=== PATIENT | female | born 1955 | race Caucasian/White ===

== ENCOUNTER 2018-05-03 16:52 | Observation (INO) ==
[2018-05-03] MEDS ORDERED: ASPIRIN PO ONE (17:12)
--- NOTE | 2018-05-03 17:12 | ED EKG INTERP ---
This chart was entered by Aline Grayson Scribe, acting as scribe for Erlin Contreras MD. EKG Interpretation - EKG Time of EKG reading by physician:: 17:05 EKG Read and Signed by:: Erlin Contreras EKG Interpretation (*Must complete 3 of following elements*): Normal Rate: 65 Rhythm: NSR Bock: normal QRS: normal NC Interval: normal ST Wave: normal Attestation - Physician/ TYLER Attestation Patient care was provided by Advanced Practice Provider:: No The physician spent face to face time with patient:: Yes Advanced Practice Provider documentation review:: Supervising physician onsite and consulted in the evaluation and care of this patient. The physician did have a face to face encounter with the patient. This chart was documented by the indicated scribe, (Aline Grayson Scribe) and accurately reflects the services I performed and decisions made by me, Erlin Contreras MD, as attested by the provider's signature.
--- NOTE | 2018-05-03 17:26 | EKG Report ---
Test Performed on : 05/03/2018 5:05:54 PM Test Reason : KSH Blood Pressure : / mmHG Vent. Rate : 065 BPM Atrial Rate : 065 BPM P-R Int : 148 ms QRS Dur : 072 ms QT Int : 430 ms P-R-T Axes : 014 045 052 degrees QTc Int : 447 ms Normal sinus rhythm. Normal ECG When compared with ECG of 03-FEB-2017 17:57, No significant change was found Unconfirmed Result
[2018-05-03 17:29] LABS: BASO# 0.03 X1000 (0.0-0.2); BASO% 0.3 % (0.0-0.8); HEMATOCRIT 42.7 % (37.0-47.0); HEMOGLOBIN 14.9 g/dL (12.0-16.0); IMM GRAN# 0.01 X1000 (0.0-0.04); IMM GRAN% 0.1 % (0.0-0.5); LYMPH# 3.81 X1000 (1.2-3.4); LYMPH% 38.9 % (20.5-51.1); MCH 30.5 PG (27-31); MCHC 34.9 g/dL (33-37); MCV 87.5 FL (81-99); MONO% 5.1 % (1.7-9.3); MPV 12.2 FL (7.4-10.4); NEUT# 5.34 X1000 (1.4-6.5); NEUT% 54.6 % (42.2-75.2); PLT 231 X1000 (130-400); RBC 4.88 XMIL (4.2-5.4); RDW 13.1 % (11.5-14.5); WBC 9.79 X1000 (4.8-10.8)
[2018-05-03 17:43] LABS: INR 0.91; PROTIME 12.7 Seconds (11.0-16.0)
[2018-05-03 17:44] LABS: PTT 31.6 Seconds (22.3-41.8)
[2018-05-03 17:48] LABS: AGAP 16; ALBUMIN 4.2 g/dL (3.5-5.0); ALKALINE PHOSPHATASE 98 U/L (32-104); BUN 22 mg/dL (8-22); CALCIUM 9.4 mg/dL (8.8-10.2); CHLORIDE 105 mmol/L (98-107); CK PROFILE 62 U/L (24-173); COSMO 286; CREATININE 0.7 mg/dL (0.5-0.9); ESTIMATED GFR > 60; GLUCOSE 90 mg/dL (70-104); GOT 17 U/L (10-30); GPT 13 U/L (10-36); POTASSIUM 4.1 mmol/L (3.5-5.1); SODIUM 142 mmol/L (136-145); TCO2 21 mmol/L (25-35); TOTAL PROTEIN 6.4 g/dL (6.3-8.3)
--- NOTE | 2018-05-03 18:25 | Diag Imaging Result Doc PS360 ---
CT HEAD W/O CONTRAST - 05/03/2018 INDICATION: possible cva COMPARISON: None FINDINGS: The ventricles and sulci are normal in size and contour. No intracranial mass or hemorrhage. The skull is intact. The sinuses mastoids and middle ears are clear. IMPRESSION: Negative exam. This exam was performed using automated exposure control, adjustment of mA or kV according to patient size, and/or use of iterative reconstruction technique Electronically signed by Zack Vasques 05/03/2018 6:22 PM
--- NOTE | 2018-05-03 18:52 | PROVIDER DOCUMENTATION ---
This chart was entered by Aline Grayson Scribe, acting as scribe for Erlin Contreras MD. HPI-Chest Pain - General Chief Complaint: Chest Pain Stated Complaint: CHEST PAIN/JEHOVAH'S WITNESS PAIN Time Seen by Provider: 05/03/18 17:11 Source: patient Allergies/Adverse Reactions: Patient Allergies Allergy/AdvReac Type Severity Reaction Status Date / Time Penicillins Allergy HIVES Verified 05/03/18 17:04 Home Medications: Home Medication List Medication Instructions Recorded Confirmed Last Taken Type Hydrocodone/Acetaminophen [[place] 1 ea PO Q4-6H PRN PRN #20 tab 02/03/17 Unknown Rx 5-325 Tablet] Ondansetron [Zofran Odt] 8 mg PO Q8H PRN #20 tab.rapdis 02/03/17 Unknown Rx - History of Present Illness-CP Nature of Presenting Problem: 62 yof presents to ed w/cc chest pain, tingling on left side of body (legs, head /faith area and near mouth), symptoms of tingling started today but chest pain has been on and of for months. pain radiates into abd and is causing nausea. 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 pt is coming to [facility] on to get mri of heart. Review of Systems - Adult - REVIEW OF SYSTEMS - ADULT Constitutional: denies: chills, fever, fatique Eyes: reports: no symptoms reported Ears, Nose, Mouth & Throat: reports: no symptoms reported Cardiovascular: reports: see HPI, chest pain, irregular heart rate (arrythmia). denies: edema, palpitations, syncope Respiratory: reports: no symptoms reported Gastrointestinal: reports: see HPI, abdominal pain, nausea. denies: constipation, difficulty swallowing, frequent heartburn Genitourinary: reports: no symptoms reported Musculoskeletal: reports: no symptoms reported Integumentary: reports: no symptoms reported Neurological: reports: see HPI (pain in left faith), numbness (in left side of body, head/faith left side, left leg, neck.). denies: ataxia, loss of balance Psychiatric: reports: no symptoms reported Endocrine: reports: no symptoms reported Hematologic/Lymphatic: reports: no symptoms reported Allergic/Immunologic: reports: no symptoms reported All Other Systems: Reviewed and Negative Past History - Adult - PAST MEDICAL HISTORY-ADULT Review of Records: reports: Old Records Reviewed, Nursing Assessment Review, Medications Reviewed, Social history reviewed & non-contributory. Major Childhood Illnesses: reports: denies history Cardiovascular: reports: angina, arrhythmia, CAD Respiratory: reports: denies history Gastrointestinal: reports: denies history Obstetrical/Gynecological: reports: denies history Genitourinary: reports: denies history Musculoskeletal: reports: denies history Neurological: reports: denies history Endocrine/Immune: reports: denies history Other Conditions: reports: cataract/glaucoma, other (gallstones) - PRIOR SURGERIES/PROCEDURES Surgical/Procedure History: reports: hysterectomy, orthopedic (extremity) (knee , shoulder), other (cataract removal) - IMMUNIZATION STATUS Childhood Immunizations: See Nurse Assessment Flu Vaccine: See Nurse Assessment - FAMILY HISTORY Family History: reviewed, not pertinent - SOCIAL HISTORY Smoking: cigarettes, less than 1 pack/day Provider spent 3-5 mins advising pt. on dangers of tobacco.: Discussed manners to quit use, and f/u contacts for add'l counseling. Substance Use: none/never Physical Exam-General - PHYSICAL EXAM-ADULT Initial Vital Signs Reviewed: Yes - CONSTITUTIONAL General Appearance: appears well, alert, no apparent distress - EYES Eyes: PERRL/EOMI - HEAD, EARS, NOSE, MOUTH & THROAT HENMT: normocephalic/atraumatic, moist mucous membranes, normal ENT inspection - NECK Neck: non-tender, full range of motion, supple - RESPIRATORY Respiratory: chest non-tender, lungs clear, normal breath sounds - CARDIOVASCULAR Cardiovascular: normal peripheral pulses, regular rate, rhythm, no edema, no gallop, no JVD, no murmur - GASTROINTESTINAL (ABDOMEN) Abdominal Exam: normal bowel sounds, non tender, soft - LYMPHATIC Lymphatic: no adenopathy - MUSCULOSKELETAL Back Exam: normal inspection, no CVA tenderness, no vertebral tenderness Extremity: normal range of motion, non-tender, normal gait, normal inspection - SKIN Integumentary: normal color, normal turgor, warm/dry - NEUROLOGIC 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, grossly normal, no motor/sensory deficits - PSYCHIATRIC Psych/Mental Status: normal mood/affect, normal thought content, normal thought process, oriented x 3 - HEART Score HEART Score: History: Slightly Suspicious HEART Score: ECG: Non-Specific Repolarization Disturbance/LBBB/PM HEART Score: Age: 45-65 Years HEART Score: Risk Factors for Atherosclerotic Disease: 1 or 2 Risk Factors HEART Score: Troponin: < or = Normal Limit Total HEART Score:: 3 Progress - PLAN OF CARE/RESULTS Progress/Plan/Lab Results: Vital Signs - 8 hr 05/03/18 16:58 Temperature 98.3 F Pulse Rate 76 Respiratory Rate 18 Blood Pressure 132/76 O2 Sat by Pulse Oximetry 99 Laboratory Results - last 24 hr 05/03/18 05/03/18 05/03/18 15:17 15:17 15:17 WBC 9.79 RBC 4.88 Hgb 14.9 Hct 42.7 MCV 87.5 MCH 30.5 MCHC 34.9 RDW Std Deviation 13.1 Plt Count 231 MPV 12.2 H Immature Gran % (Auto) 0.1 Neut % (Auto) 54.6 Lymph % (Auto) 38.9 [place] % (Auto) 5.1 Eos % (Auto) 1.0 Baso % (Auto) 0.3 Immature Gran # (Auto) 0.01 Neut # (Auto) 5.34 Lymph # (Auto) 3.81 H [place] # (Auto) 0.50 Eos # (Auto) 0.10 Baso # (Auto) 0.03 PT INR PTT (Actin FS) Sodium 142 Potassium 4.1 Chloride 105 Carbon Dioxide 21 L Anion Gap 16 BUN 22 Creatinine 0.7 Estimated GFR/1.73 m2 > 60 BUN/Creatinine Ratio 31 Glucose 90 Calculated Osmolality 286 Calcium 9.4 Total Bilirubin 0.20 AST 17 ALT 13 Alkaline Phosphatase 98 Creatine Kinase 62 Troponin T Mda-B-Ivdbjabmiaj Pept 20 Total Protein 6.4 Albumin 4.2 Globulin 2.0 Albumin/Globulin Ratio 2.0 05/03/18 05/03/18 15:17 15:17 WBC RBC Hgb Hct MCV MCH MCHC RDW Std Deviation Plt Count MPV Immature Gran % (Auto) Neut % (Auto) Lymph % (Auto) [place]ill % (Auto) Eos % (Auto) Baso % (Auto) Immature Gran # (Auto) Neut # (Auto) Lymph # (Auto) Traill # (Auto) Eos # (Auto) Baso # (Auto) PT 12.7 INR 0.91 PTT (Actin FS) 31.6 Sodium Potassium Chloride Carbon Dioxide Anion Gap BUN Creatinine Estimated GFR/1.73 m2 BUN/Creatinine Ratio Glucose Calculated Osmolality Calcium Total Bilirubin AST ALT Alkaline Phosphatase Creatine Kinase Troponin T < 0.010 Pzv-I-Sepaergdtkq Pept Total Protein Albumin Globulin Albumin/Globulin Ratio Orders Category Date Time Status Cardiac Monitoring DIRECTED Care 05/03/18 17:12 Active Oxygen Therapy- ED Nursing DIRECTED Care 05/03/18 17:12 Active Saline Loc NOW Care 05/03/18 17:12 Active CHEST-2 VIEWS [RAD] Stat Exams 05/03/18 17:[address] HEAD W/O CONTRAST [CT] Stat Exams 05/03/18 17:33 Completed CBC WITH ELECTRONIC DIFF [HEME] Stat Lab 05/03/18 15:17 Completed CK PROFILE [SP CHEM] Stat Lab 05/03/18 15:17 Completed COMPREHENSIVE METABOLIC PANEL [CHEM] Stat Lab 05/03/18 15:17 Completed PRO B-NATRIURETIC PEPTIDE Stat Lab 05/03/18 15:17 Completed PROTIME WITH INR [COAG] Stat Lab 05/03/18 15:17 Completed PTT [COAG] Stat Lab 05/03/18 15:17 Completed TROPONIN T Stat Lab 05/03/18 15:17 Completed Aspirin Med 05/03/18 17:12 Discontinued 325 mg PO NOW ONE CP/SOB/Palp >45 yrs of Age Stat Oth 05/03/18 17:12 Ordered EKG [EKG] Stat Ther 05/03/18 17:12 Draft Result Diagrams: 05/03/18 15:17 05/03/18 15:17 - CONSULTS/PCP/HOSPITALIST Notification #1 *Consult/PCP/Hospitalist*: Dr Luo Time Discussed: 18:52 Consult Disposition: Will see in ED, Admit Departure - Departure Date of Disposition Decision: 05/03/18 Time of Disposition Decision: 18:52 DIAGNOSIS: Chest pain, TIA (transient ischemic attack) Disposition: ADMITTED INPATIENT 09 Certified Medical Emergency: Emergent Condition: Fair Referrals and Follow-Ups: Kendrick Arriola MD [Primary Care Provider] - - Critical Care Note This patient required my direct & personal management of CC.: No Attestation - Physician/ TYLER Attestation Patient care was provided by Advanced Practice Provider:: No The physician spent face to face time with patient:: Yes Advanced Practice Provider documentation review:: Supervising physician onsite and consulted in the evaluation and care of this patient. The physician did have a face to face encounter with the patient. This chart was documented by the indicated scribe, (Aline Grayson, Nita) and accurately reflects the services I performed and decisions made by me, Erlin Contreras MD, as attested by the provider's signature.
--- NOTE | 2018-05-03 19:21 | Diag Imaging Result Doc PS360 ---
CHEST-2 VIEWS - 05/03/2018 INDICATION: CP COMPARISON: None FINDINGS: The lungs are normally expanded and clear. Heart size and mediastinal contours are normal. No pneumothorax or pleural effusion. IMPRESSION: Negative exam. Electronically signed by Zack Vasques 05/03/2018 7:19 PM
[2018-05-03] MEDS ORDERED: TYLENOL PO PRN (22:13)
[2018-05-03] MEDS: ZOFRAN IV PRN (22:45)
[2018-05-03 23:27] LABS: AGAP 16; ALBUMIN 3.9 g/dL (3.5-5.0); ALKALINE PHOSPHATASE 83 U/L (32-104); BUN 22 mg/dL (8-22); CHLORIDE 105 mmol/L (98-107); COSMO 284; CREATININE 0.6 mg/dL (0.5-0.9); ESTIMATED GFR > 60; GLUCOSE 88 mg/dL (70-104); GOT 14 U/L (10-30); GPT 12 U/L (10-36); SODIUM 141 mmol/L (136-145); TCO2 20 mmol/L (25-35)
--- NOTE | 2018-05-04 00:44 | HISTORY AND PHYSICAL ---
CHIEF COMPLAINT: Headache and then chest pain. HISTORY OF PRESENT ILLNESS: This is a 62-year-old female who comes in from home with a headache. Her main symptoms were headache. She has tingling and weakness on the left side of her face, arm, and left leg. I do not think she has had that before. Her chest pain is intermittent, off-and-on for months. She also is very nauseous. She saw Dr. Nails on Tuesday, who got an EKG, blood pressure was 190, and she was coming back it is quoted here "for an MRI of the heart." I do not think that is accurate. I am assuming she is trying to get a coronary CT angiogram of the heart, but in any case, her symptoms are atypical. She has left-sided weakness, paresthesias, but then also kind of an intermittent lancinating pain. Workup was really unremarkable. She does have a birthmark that looks like some sort of vascular birthmark that she has had surgery on that is periorbital, but then also along her buccal area on the left side. She was admitted for TIA but then, of course, there was concern over chest pain, but that has been going on off and on and, again, I think Dr. Nails has been planning a coronary CT angiogram for that purpose. Not an MRI as far as I can tell. The only med she takes are [place] and Zofran. She is not hypertensive, at least no medicines for that. No dyslipidemia. No diabetes. No CAD. The patient placed in observation for possible TIA and chest pain. PAST MEDICAL HISTORY: No chest pain, no CAD. PAST SURGICAL HISTORY: She has had a hysterectomy, She has had knee and shoulder repairs, and then she recently had cataract removal. FAMILY HISTORY: She has had brothers, father, and mother with CAD. Father, I think, had heart issues in her 50s. Mother, I think, in her late 60s or 70s. Brother also may be in the 60s. SOCIAL HISTORY: She smokes about half a pack a day. No alcohol. These symptoms started at work, probably right before lunchtime. REVIEW OF SYSTEMS: Otherwise negative times a 10 point review of systems. PHYSICAL EXAMINATION: VITAL SIGNS: Blood pressure 173/107, heart rate 76, respiratory rate 19, temperature 98.3 degrees. GENERAL: A well-developed female in no acute distress. HEAD: Normocephalic, atraumatic. She did have the lesion on her left face previously. EYES: Pupils are equal, round, reactive to light. Extraocular movements were intact. EARS, NOSE, AND THROAT: She had moist mucous membranes. CARDIOVASCULAR: Regular rate and rhythm. PULMONARY: Bilateral breath sounds. Clear to auscultation. GASTROINTESTINAL: Soft, nontender, nondistended. Bowel sounds are positive. NEUROLOGICAL: I would say was focal in the sense of weakness, but cranial nerves 2-12 were intact. Her musculoskeletal, she definitely had a depreciative of lack in strength on the left side, arm, leg. She had paresthesias on the left side of her face. SKIN: Just vascular ectasia on the left side of her face. LABORATORY DATA: Really unremarkable. Labs okay. IMAGING: Head CT was unremarkable. Chest x-ray negative. EKG was negative. There was some concern over possible left bundle branch block, but her QRS is 72 milliseconds. I am really not sure, there is no evidence of that per se. ASSESSMENT: 1. Chest pain. Place her in Observation. Get cardiology opinion about further imaging. Do serial enzymes and monitor. 2. Neurologic. Unclear if this is transient ischemic attack versus other process. Aortic dissection is always a concern when there is neurological symptoms of chest pain. I think that is highly unlikely because she is so stable, but we will analyze that. She does not have a widened mediastinum on her chest x-ray. Her blood pressures are stable, but we will analyze that. 3. Transient ischemic attack. Stroke is a possibility. We will pursue MRI in the morning as her other tests are negative. We will pursue other workup, B12, sedimentation rate, folate, TSH, see if there is any other potential markers here for other pathology that may explain her paresthesias, but she does have some weakness. We will attempt to get a neurology consult if available tomorrow for further evaluation. We will continue to monitor closely. This is a patient Dr. Arriola. We will continue to follow. cc: MD Kendrick Cedillo MD
[2018-05-04 02:28] LABS: BASO# 0.03 X1000 (0.0-0.2); BASO% 0.4 % (0.0-0.8); EOS# 0.09 X1000 (0.0-0.7); EOS% 1.1 % (0.0-10.0); HEMATOCRIT 38.4 % (37.0-47.0); HEMOGLOBIN 13.4 g/dL (12.0-16.0); IMM GRAN# 0.03 X1000 (0.0-0.04); IMM GRAN% 0.4 % (0.0-0.5); LYMPH# 3.49 X1000 (1.2-3.4); LYMPH% 40.8 % (20.5-51.1); MCH 30.6 PG (27-31); MCHC 34.9 g/dL (33-37); MCV 87.7 FL (81-99); MONO# 0.52 X1000 (0.11-0.59); MONO% 6.1 % (1.7-9.3); MPV 12.4 FL (7.4-10.4); NEUT# 4.39 X1000 (1.4-6.5); NEUT% 51.2 % (42.2-75.2); PLT 209 X1000 (130-400); RBC 4.38 XMIL (4.2-5.4); RDW 12.9 % (11.5-14.5); WBC 8.55 X1000 (4.8-10.8)
[2018-05-04] MEDS: ZOFRAN IV PRN (02:38)
[2018-05-04] MEDS: MORPHINE IV PRN ×2 (02:38→17:20)
[2018-05-04 02:48] LABS: TSH 1.23 uIUmL (0.27-4.20)
[2018-05-04 06:04] LABS: SED RATE 15 mm/hr (0-20)
--- NOTE | 2018-05-04 08:27 | Diag Imaging Result Doc PS360 ---
CT THORAX W/CONTRAST - 05/04/2018 INDICATION: chest pain COMPARISON: Chest x-ray 05/03/2018 FINDINGS: There is advanced calcific coronary artery disease primarily of the left anterior descending coronary artery. Heart size is normal with no pericardial effusion. No adenopathy. There are cholecystectomy clips. Upper abdominal images are normal. There is some platelike atelectasis in the left lower lobe and the right upper lobe. No infiltrates. There are moderate degenerative changes of the spine. No acute or suspicious bony lesion. IMPRESSION: No acute disease. Coronary artery disease. This exam was performed using automated exposure control, adjustment of mA or kV according to patient size, and/or use of iterative reconstruction technique Electronically signed by Zack Vasques 05/04/2018 8:25 AM
[2018-05-04] MEDS ORDERED: FLU VACCINE IM ONE (09:00)
[2018-05-04] MEDS ORDERED: PNEUMOVAX 23 IM ONE (09:00)
--- NOTE | 2018-05-04 09:24 | Diag Imaging Result Doc PS360 ---
MRI BRAIN W/WO CONTRAST - 05/04/2018 INDICATION: r/o cva COMPARISON: None FINDINGS: There is no area of restricted diffusion. The ventricles and sulci are normal in size and contour. No intracranial mass or hemorrhage. No area of abnormal contrast enhancement. Midline structures including the optic chiasm and pituitary are normal. IMPRESSION: Negative exam. Electronically signed by Zack Vasques 05/04/2018 9:22 AM
[2018-05-04] MEDS: ASPIRIN EC PO SCH (10:21)
--- NOTE | 2018-05-04 15:19 | CARDIOLOGY CONSULTATION ---
DATE: 05/04/2018 HISTORY OF PRESENT ILLNESS: This is a 62-year-old lady who presents with having headache and intermittent chest discomfort. She also shares that when she came to the emergency room she had some tingling and difficulty in speech. As far as chest pain is concerned, she describes it as sharp in character. She was recently seen in our office and she was noted to have an elevated blood pressure of 190/100. Given that adjustment to medications were made, she was also going to be set up for a CT angiogram of her coronary arteries to rule out obstructive coronary artery disease. At the time of my examination the patient was pain free. She does not complain of having any chest pains at the present time. She has had normal blood pressures, had been on medications; however, her blood pressure was elevated and she was sent a prescription of Norvasc. There is no history of palpitations. There is no dizziness or syncope. REVIEW OF SYSTEM: A 14-point review of systems was done.GI system: There is no history of nausea, vomiting, or diarrhea. Central nervous system: As above. Genitourinary: There is no dysuria or hematuria. Respiratory System: There is no history of cough, expectoration, hemoptysis. There is no history of fevers or chills. PAST MEDICAL HISTORY: 1. Hypertension, uncontrolled. 2. Hyperlipidemia. 3. History of left heart catheterization at [facility] in 2010. Per patient, she was noted to have some minimal blockages but nothing significant at that time. 4. Obesity. 5. Smoker. 6. Family history of coronary artery disease. 7. There is no history of alcohol abuse. PHYSICAL EXAMINATION: Vital Signs: Blood pressure when she was seen in our office was 190/100. Currently blood pressure is elevated. When she came in here it was 170/100. Cardiovascular System: Normal jugular venous pressure. There no thyromegaly. No carotid bruit. First and second heart sounds were heard. There is no S3, S4, or gallop. Respiratory System: Normal air entry. There are no crepitations or rhonchi. Abdomen: Soft, obese, nontender. There was no guarding or rigidity. Bowel sounds were heard. Central nervous system: Alert and oriented. Was moving all 4 extremities. Detailed central nervous system examination not performed. Extremities: Examination of extremities revealed no pedal edema. HEENT: Atraumatic, normocephalic. Pupils were equal and reacting to light. ASSESSMENT AND PLAN: Ms. Sandhya Jean-Baptiste is a 62-year-old lady with minimal coronary artery disease, hypertension, hyperlipidemia, comes to the emergency room with having chest pain. She has also noted some difficulty in speech as well. Blood pressures were elevated. RECOMMENDATIONS: 1. From a cardiac standpoint, we will get an echocardiogram to assess cardiac and valvular function. 2. We will get a CT angiogram of her coronary arteries to rule out obstructive coronary artery disease. 3. She did complain of having some difficulty in speech. Otherwise, no obvious neurological symptom. Given this, we will also get a CT scan to make sure there is no significant intracranial pathology. 4. For hypertension, increase her metoprolol to 50 mg twice a day. She is on lisinopril 20. In addition we will add Norvasc to her medical regimen as planned. 5. We will continue with her aspirin. Thanks for the consult. We will follow hospital course. cc: Kashif Sorensen MD
[2018-05-04] MEDS: NORVASC PO SCH (15:58)
--- NOTE | 2018-05-04 16:28 | PROGRESS NOTE ---
DATE: 05/04/2018 SUBJECTIVE: This morning. Ms. Jean-Baptiste referred to be doing a lot better. Still has some residual left-sided weakness, but no more chest discomfort. OBJECTIVE: Vital signs: Blood pressure is 119/48. The patient presented with a blood pressure 173/107, pulse is 65, respirations 18, temperature 97.7. General: Ms. Jean-Baptiste is a 62-year-old, female. She is in bed. Not seemingly distressed. HEENT: Mucosa is pink and moist. Anicteric. Acyanotic. Neck: Supple. Chest: Good air entry bilateral. There were no crepitations, no rhonchi. Cardiovascular: Regular rate and rhythm. No murmurs, no rubs, no gallops. Abdomen: Soft, nontender. Bowel sounds present. Extremities: No pedal edema. 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 There is some power about 4- on the left side and 5/5 on the right side. There is also some sensation deficit in the left side comparing to the right side. LABORATORY DATA: WBC is 8.55, hemoglobin is 13.4, platelet count of 209. Chemistry is also reviewed and unremarkable. The patient's troponins have been repeated 4 times negative. IMAGING STUDIES: Of significance: A chest x-ray on presentation shows normal. A CT scan of the head showed was negative. An MRI has shown no abnormality. A CT of the chest shows no acute, but there is coronary artery disease. ASSESSMENT: 1. Acute onset of left-sided weakness with dysarthria and hypo-anesthesia. All suggestive of possible cerebrovascular accident in the right middle cerebral artery territory. However, the MRI is completely normal. We will get carotid ultrasound to complete the studies. 2. Chest pain with normal enzymes. EKG is also unremarkable for any ST-segment or T-wave abnormality. The patient has been evaluated by Cardiology and there is a plan for a CT angiogram of the coronaries tomorrow. 3. History of coronary artery disease. 4. Severe, uncontrolled hypertension on presentation. Improved. PLAN: So, in general, Ms. Jean-Baptiste seems to be doing fairly okay. She has been seen by Cardiology and there is a plan for a coronary CTA tomorrow. We will also do the carotid studies for completion of the stroke workup. We will get physical therapy to start working with her. Hopefully, in the next 24 hours, will probably be able to discharge her. cc: Brown Kim MD
[2018-05-04] MEDS: LOPRESSOR PO SCH ×2 (18:49→20:06)
[2018-05-04] MEDS: LIPITOR PO SCH (20:08)
--- NOTE | 2018-05-05 03:52 | ECHO REPORT ---
ORDER DATE: 05/04/2018 MEASUREMENTS: Left ventricular end diastolic diameter 3.8. End systolic diameter 2.2. Septal thickness 1.1. Posterior wall thickness 1.0. Aortic root 3.1. Left atrium 3.1. SUMMARY: 1. Fair quality study. 2. Aortic valve is trileaflet, and opens normally on 2-dimensional images. Peak gradient across the aortic valve is less than 10 mmHg. Mitral, tricuspid, and pulmonic valves are without evidence of structural abnormality, with trace mitral regurgitation and trace tricuspid regurgitation. Aortic root is normal in size. 3. Normal left ventricular dimensions demonstrated. Estimated left ventricular ejection fraction appears to be at least 65%. No regional wall motion abnormalities are evident. Doppler suggests grade 1 left ventricular diastolic dysfunction. The left atrium, right atrium, and right ventricle are normal in size, with grossly preserved right ventricular systolic function. 4. No pericardial effusion. 5. Appearance of inferior vena cava suggests normal central venous pressure. cc: MD Jaclyn Hitchcock CRNP
[2018-05-05] MEDS: LOPRESSOR PO SCH ×2 (05:53→17:09)
[2018-05-05] MEDS ORDERED: NITROGLYCERIN LINGUAL SPRAY ONE (08:00)
--- NOTE | 2018-05-05 09:20 | Extremity Venous Study ---
EXAM: Carotid Ultrasound - 05/04/2018 HISTORY: stroke like symptoms TECHNIQUE: Carotid flow studies COMPARISON: None. FINDINGS: There is mild atherosclerotic plaquing at the carotid bulb and proximal internal carotid on the right. Maximum systolic velocity in the right internal carotid is 73 cm/s, and maximum diastolic velocity is 20 cm/s. The right internal to common carotid systolic velocity ratio is 1.08. The flow velocities and ratio are consistent with 0-39% stenosis at the right internal carotid. The right vertebral demonstrates antegrade flow. There is mild atherosclerotic plaquing at the common carotid on the left. There is there is mild atherosclerotic plaquing at the carotid bulb and proximal internal carotid on the left. Maximal systolic velocity in the left internal carotid is 91 cm/s, and maximum diastolic velocity is 20 cm/s. The left internal to common carotid systolic velocity ratio is 0.76. The flow velocities and ratio are consistent with 0-39% stenosis at the left internal carotid. The left vertebral demonstrates antegrade flow. IMPRESSION: Mild atherosclerotic plaquing in bilateral carotid systems. 0-39% stenosis at right internal carotid. 0-39% stenosis at left internal carotid. Electronically signed by Shadi Pérez 05/05/2018 9:17 AM
--- NOTE | 2018-05-05 09:29 | Diag Imaging Result Doc PS360 ---
EXAM: CT ANGIOGRAM HEART W/WO CONT - 05/05/2018 HISTORY: chest pain TECHNIQUE: CT heart with calcium scoring without contrast; CT angiogram heart over read (the CT angiogram itself is interpreted separately by cardiology) COMPARISON: 05/04/2018 CT thorax with contrast FINDINGS: CT heart with calcium scoring: The total calcium score is 412. This is in the extensive plaque burden range of over 400. CT angiogram heart over read: There is stable mild linear scarring at the anterior right upper lobe. There is subsegmental atelectasis at the bilateral lower lobes which appears overall decreased compared to prior. The visualized lungs near the heart otherwise appear clear of acute changes. The visualized mediastinum shows some atheromatous changes in the thoracic aorta. There is no indication of aortic dissection. There is thoracic spondylosis noted. IMPRESSION: CT heart with calcium scoring: The total calcium score is 412. This is in the extensive plaque burden range of over 400. CT angiogram heart over read: Mild linear scarring at right upper lobe. Mild atelectasis at bilateral lower lobes. Atheromatous changes in the thoracic aorta. Electronically signed by Shadi Pérez 05/05/2018 9:26 AM
--- NOTE | 2018-05-05 11:32 | PROGRESS NOTE ---
DATE: 05/05/2018 SUBJECTIVE: Patient denies having any acute complaints this morning. OBJECTIVE: Vital Signs: Temperature 97.3 degrees, pulse 57 per minute, respiratory rate 18 per minute, blood pressure 124/44, and pulse oximetry 98% on room air. General: Patient is alert and oriented x3. She does not appear to be in any acute distress. Cardiovascular: First and second heart sounds are audible without any murmurs or gallops. Respiratory: No respiratory distress noted. Bilateral lung air entry is good without any rales or rhonchi. Gastrointestinal: Abdomen is soft and nontender. Normal bowel sounds are present. DIAGNOSTIC DATA: Labs from yesterday were reviewed that showed negative cardiac enzymes. IMPRESSION: A 62-year-old female who has been admitted with chest pain, and has history of TIA, along with hypertension. She is here for coronary artery disease evaluation. PLAN: The patient has been seen by Cardiology who recommended her to have CT angiogram of the coronary arteries. The test has been done, but we are waiting for the results at this time. She is chest pain free, and seems to be in stable condition. We are going to continue with aspirin 81 mg daily along with her routine medications including atorvastatin 40 mg daily and lisinopril 20 mg daily. She is also getting metoprolol 50 mg twice daily along with amlodipine 5 mg daily. We will wait until the CT angiogram of the coronary results are back. She can probably be discharged home if there is no coronary artery disease documented on CT angiogram. cc: Syeda Javier MD
[2018-05-05] MEDS: NORVASC PO SCH (12:44)
[2018-05-05] MEDS: PRINIVIL PO SCH (12:44)
--- NOTE | 2018-05-05 15:52 | CTA CORONARY ---
PROCEDURE NAME: - CT CORONARY ANGIOGRAPHY, CT LEFT VENTRICULOGRAPHY: Informed consent was obtained from the patient. Intravenous access was established. 90 mL of iodinated contrast was given per standard protocol. Images were acquired at 0.6 mm multislice intervals, presented for review. FINDINGS: 1. Calcium score was 412. Left ventricular ejection fraction 55%. 2. Ascending aorta was normal. There was no dissection noted. Aortic valve leaflets are trileaflet. Pulmonary veins, 2 superior, 2 inferior, were normal. 3. Pulmonary arteries in the proximal presented segment did not reveal any evidence of obstruction. 4. Coronary anatomy: There appeared to be 2 ostia for the left anterior descending artery and the circumflex artery. However, there was eccentric calcification obscuring the ostium of the left anterior descending artery. 5. Just beyond the ostium, there was noncalcified plaque with at least 50% to 60 % stenosis noted in the proximal left anterior descending artery, more close to the ostium. Beyond that, there was poststenotic dilatation. There was calcified and noncalcified plaque extending into the proximal segment of the left anterior descending artery. In that segment there was 30% to 40% stenosis. Further distally, the left anterior descending artery had eccentric calcification coursed around the apex without any other significant stenosis. 6. Diagonal arteries 1 and 2 were small caliber vessels without any significant stenosis. 7. The ostium of the circumflex artery appeared to be obscured because of the eccentric calcification noted. However, there does not appear to be any stenosis. The circumflex arterial system was nondominant. The vessel itself was a large caliber vessel. Distally, it was extremely tortuous and long without any significant stenosis. 8. The right coronary artery was a dominant vessel. The proximal mid distal right coronary artery was normal. There was a moderate-sized PDA which was long, slightly tortuous distally without any significant stenosis. The posterolateral branch of the right coronary artery was a moderate to large size vessel divided distally into 3 small caliber vessels without any significant stenosis. CONCLUSIONS: 1. Calcium score was 412. 2. There appeared to be 2 ostia off the left anterior descending artery and the another 1 for the circumflex artery. However, there was calcium noted obscuring the ostium of the left anterior descending artery. Just beyond that, the left anterior descending artery had noncalcified plaque. The vessel there measured 1.9 mm diffusely narrowed up to 50% to 60% . Beyond that, there was poststenotic dilatation of the left anterior descending artery. The vessel beyond that had eccentric calcified and noncalcified plaque of 30% to 40%. Further distally, there was eccentric calcification. 3. Circumflex arterial system was nondominant and was normal. The right coronary artery was a large dominant vessel and was normal. Left ventricular ejection fraction 55% . RECOMMENDATIONS: Would recommend invasive coronary angiography given the disease noted in the ostium of the left anterior descending artery which had separate ostia. This could be because of ballooning artifact as well. However, there was followed by poststenotic dilatation noted in the proximal LAD. cc: Kashif Sorensen MD MTDD
[2018-05-05] MEDS: ASPIRIN EC PO SCH (17:09)
[2018-05-05] MEDS: LIPITOR PO SCH (20:41)
[2018-05-05] MEDS: MORPHINE IV PRN (20:41)
[2018-05-05] MEDS: ZOFRAN IV PRN (20:41)
[2018-05-06] MEDS: MORPHINE IV PRN ×3 (02:00→18:31)
[2018-05-06] MEDS: LOPRESSOR PO SCH ×2 (06:30→18:31)
[2018-05-06] MEDS: ZOFRAN IV PRN ×3 (06:35→18:38)
[2018-05-06] MEDS: PRINIVIL PO SCH (09:29)
[2018-05-06] MEDS: ASPIRIN EC PO SCH (09:29)
[2018-05-06] MEDS: NORVASC PO SCH (09:29)
--- NOTE | 2018-05-06 12:20 | PROGRESS NOTE ---
DATE: 05/06/2018 SUBJECTIVE: Patient denies having any acute complaints this morning and feels well. OBJECTIVE: Vital Signs: Temperature 97.8 degrees, pulse 55 per minute, respiratory rate 18 per minute, blood pressure 131/57, and pulse ox 97% on room air. General: Patient is alert and oriented x3. She does not appear to be in any acute distress. Cardiovascular System: First and second heart sounds are audible without any murmurs or gallops. Respiratory System: No respiratory distress noted. Bilateral lung air entry is good without any rales or rhonchi. Gastrointestinal: Abdomen is soft and nondistended. Normal bowel sounds are present. DIAGNOSTIC DATA: Serial cardiac enzymes have been negative for any acute myocardial ischemic event. CT angiogram of the coronaries done yesterday showed some calcium noted to be obscuring the ostium of the left anterior descending artery. Left anterior descending artery was noted to have diffuse narrowing up to 50 to 60 percent. There was also poststenotic dilatation of the left anterior descending artery. The vessel beyond that had eccentric calcified and noncalcified plaque of 30 to 40 percent. Circumflex and right coronary arteries were normal. Left ventricular ejection fraction was estimated at 55%. IMPRESSION: 1. Coronary artery disease. 2. History of TIA. 3. Hypertension. PLAN: We will keep her here at the hospital, and keep her on aspirin, atorvastatin, metoprolol and lisinopril. Cardiology has recommended her to be transferred tomorrow to [facility] for left heart catheterization done on Tuesday morning. This has been communicated with the patient, and she has agreed with the treatment plan. cc: Syeda Javier MD
[2018-05-06] MEDS: LIPITOR PO SCH (21:11)
--- NOTE | 2018-05-06 21:29 | CARDIOLOGY PROGRESS NOTE ---
DATE: 05/06/2018 SUBJECTIVE: Ms. Jean-Baptiste has had very brief episodes of chest discomfort, lasting a few seconds. These have occurred at rest. PHYSICAL EXAMINATION: Vital Signs: She is afebrile. Heart rate of 55, blood pressure 131/57. General: She is in no acute distress. Cardiovascular: Regular rate and rhythm. No murmurs. No S3. No lower extremity edema. Chest: Clear bilaterally. No increased work of breathing. Abdomen: Soft, nontender, no recent laboratories have been checked. ASSESSMENT: Ms. Jean-Baptiste is a 62-year-old female, who had a coronary CT that was concerning for possible ostial LAD disease. She is pending transfer over to [facility] for potential intervention to this lesion. cc: Basim Nguyen MD
[2018-05-07] MEDS: LOPRESSOR PO SCH ×2 (05:35→18:40)
[2018-05-07] MEDS: MORPHINE IV PRN ×3 (10:01→20:23)
[2018-05-07] MEDS: ZOFRAN IV PRN ×2 (10:02→20:23)
[2018-05-07] MEDS: ASPIRIN EC PO SCH (10:46)
[2018-05-07] MEDS: PRINIVIL PO SCH ×2 (10:47→10:52)
[2018-05-07] MEDS: NORVASC PO SCH (10:51)
--- NOTE | 2018-05-07 12:38 | PROGRESS NOTE ---
DATE: 05/07/2018 SUBJECTIVE: Patient denies having any acute complaints at this time. She did have a mild episode of brief chest pain early this morning. Currently, she is not having any more chest pain. OBJECTIVE: Vital Signs: Temperature 98 degrees, pulse is 58 per minute, respiratory rate 18 per minute, blood pressure 144/65, pulse oximetry 99% on room air. General: Patient is alert and oriented x3. She does not appear to be in any acute distress. Cardiovascular: First and second heart sounds are audible without any murmurs or gallops. Respiratory System: No respiratory distress noted. Bilateral lung air entry is good without any rales or rhonchi. Gastrointestinal: Abdomen is soft and nondistended. Normal bowel sounds are present. IMPRESSION: 1. Coronary artery disease. 2. Hypertension. 3. Dyslipidemia. 4. History of TIA. PLAN: This is a 62-year-old lady who had a coronary CT angiogram that was concerning for possible ostial LAD disease, because of which she Cardiology has recommended her to be transferred to [facility] for further care. We are going to continue with aspirin, metoprolol and atorvastatin. She will remain here until she is transferred over there for left heart catheterization and further interventional care. cc: Syeda Javier MD
[2018-05-07] MEDS: LIPITOR PO SCH (20:23)
[2018-05-08] MEDS: LOPRESSOR PO SCH (07:07)
[2018-05-08] MEDS: ZOFRAN IV PRN (07:34)
[2018-05-08] MEDS: MORPHINE IV PRN (07:34)
[2018-05-08 07:47] VITALS: BP 113/47
[2018-05-08] MEDS: PRINIVIL PO SCH (09:18)
[2018-05-08] MEDS: NORVASC PO SCH (09:18)
[2018-05-08] MEDS: ASPIRIN EC PO SCH (09:19)
--- NOTE | 2018-05-09 05:40 | DISCHARGE SUMMARY ---
ADMISSION DATE: 05/03/2018 DISCHARGE DATE: 05/08/2018 DISCHARGE DIAGNOSES: 1. Known coronary artery disease. 2. Chest pain. 3. Abnormal coronary CT angiogram. 4. Hypertension. 5. Dyslipidemia. CONSULTATIONS: Cardiology. PROCEDURES: Coronary CT angiogram. BRIEF HOSPITAL COURSE: Patient is a 62-year-old female who presented to the hospital subsequently diagnosed with possible ostial LAD disease. She has CT coronary artery angiogram which was abnormal and, therefore, cardiology recommended that she be transferred to [facility]. DISPOSITION: Patient was transferred to [facility]. Further discharge planning and instructions per them after her left heart catheterization. cc: Mustapha Joe MD
== END 2018-05-08 11:08 | disposition short-term general hospital (02) ==
LOC: P.MEDSURG 16:52 → P.ED 16:52 → SUATTDRO 16:53
PROVIDERS: ATTEND Family Medicine
CPT/HCPCS: 70450; 70553; 71020; 71046; 71260; 75574; 80053; 82550; 82607; 82746; 83880; 84443; 84484; 85025; 85610; 85651; 85730; 86140; 93005; 93306; 93880; 97161; 99285; A9270; A9579; J2270; J2405; Q9967